=== PATIENT | male | born 1995 | race Caucasian/White ===

== ENCOUNTER → 2017-08-07 | Outpatient (CLI) | payer OTHER ==
[~2017-08-07] MED LIST: ALB18R INH
--- NOTE | 2017-08-11 20:02 | RADIOLOGY IMAGING REPORT ---
FACILITY: [facility] [place] PATIENT NAME: KIANA MAHARAJ : [id number] MR: [id number] V: [id number] EXAM DATE: [id number] ORDERING PHYSICIAN: RAUL LAGUNAS TECHNOLOGIST: Sis Tran EXAMINATION:TWO-DIMENSIONAL ECHOCARDIOGRAPH REASON:HEART MURMUR AND PALPITATIONS. 2D Measurements (normal values in centimeters) LV endLV endRV endVent.LV PostAorticLeftPercent DiastolicSystolicDiastolicSeptumWallRootAtriumShortening (3.5-5.7)(0.9-2.6)(0.6-1.1)(0.6-1.1)(2.0-3.7)(1.9-4.0)(25-35%) [id number]% STROKE VOLUME: 60 mL ESTIMATED EJECTION FRACTION:65% PARASTERNAL LONG AXIS: Overall left ventricular function and chamber sizes all appear to be normal. Aortic valve and mitral valve both appear to open normally. Color examination of the valves was unremarkable in this view. PARASTERNAL SHORT AXIS: Overall left ventricular systolic function is normal. Aortic valve is trileaflet in configuration and appears to open normally. Tricuspid valve and pulmonic valves also appear to open normally. There is a trace of pulmonic insufficiency and tricuspid insufficiency noted. APICAL FOUR AND TWO CHAMBER: Normal left ventricular ejection fraction and normal chamber sizes. Aortic valve area and mitral valve area both measure within normal range at 2.9 and 4.1 cm2 respectively. Left atrial and right atrial volumes also measure within normal range at 12 and 26 mL/m2. SUBCOSTAL VIEW: Difficult to obtain but no pericardial effusion was noted. Doppler examination of the mitral valve in diastole revealed a normal pattern. OVERALL IMPRESSION: 1. Essentially normal 2 dimensional echocardiograph. Normal left ventricular systolic and diastolic function and normal chamber sizes. Trace of tricuspid insufficiency and pulmonic insufficiency was noted probably physiologic in nature. The estimated right ventricular systolic pressure was within normal range at 25 mmHg. No arrhythmias were noted during this echocardiograph. Dictated by: Nam Uriostegui M.D. on 08/08/2017 at 11:06 Transcribed by: CARLOS on 08/11/2017 at 14:41 Approved by: Nam Uriostegui M.D. on 08/11/2017 at 20:01 [facility] [employer]
== END ==
LOC: US 02:49
PROVIDERS: ATTEND Internal Medicine
DX: I37.1 Nonrheumatic pulmonary valve insufficiency (principal); I07.1 Rheumatic tricuspid insufficiency
CPT/HCPCS: 93306